=== PATIENT | male | born 1955 | race Caucasian/White ===

== ENCOUNTER 2018-01-15 05:35 | Day surgery (SDC) | payer OTHER ==
[~2018-01-15] VITALS: Ht 170.2 cm; Wt 77.1 kg
[2018-01-15] MEDS ORDERED: CEFAZOLIN 1 GM IVPB PREMIX 50 ML IV ONE (06:05)
[2018-01-15] MEDS ORDERED: CEFAZOLIN SOD 1 GM/ ISO 50 ML PREMIX IV ONE (07:00)
[2018-01-15] MEDS ORDERED: LR 1,000 ML IV.SOLN IV ONE (07:35)
[2018-01-15] MEDS ORDERED: MIDAZOLAM HCL 5 MG/5 ML VIAL IVP ONE (07:35)
[2018-01-15] MEDS ORDERED: NS 1000 ML IV.SOLN IV ONE (07:35)
[2018-01-15] MEDS ORDERED: ONDANSETRON HCL 4 MG/2 ML VIAL IVP ONE (07:35)
[2018-01-15] MEDS ORDERED: BUPIVACAINE /PF 0.25% 30 ML VIAL INJ ONE ×2 (07:35→08:12)
[2018-01-15] MEDS ORDERED: fentaNYL CITRATE/PF 100 MCG/2 ML AMP IVP ONE (07:35)
[2018-01-15] MEDS ORDERED: PROPOFOL 200MG/ 20ML VIAL (DIPRIVAN) IV ONE (07:35)
[2018-01-15] MEDS ORDERED: LR 1,000 ML IV SCH (08:06)
[2018-01-15] MEDS ORDERED: METOCLOPRAMIDE HCL 10 MG/2 ML VIAL IVP PRN (08:15)
[2018-01-15] MEDS ORDERED: MEPERIDINE HCL/PF 50 MG/ML AMP IVP PRN ×2 (08:15)
[2018-01-15] MEDS ORDERED: MEPERIDINE HCL/PF 25 MG/ML DISP.SYRIN IVP PRN (08:15)
[2018-01-15] MEDS ORDERED: D5/0.45 NS 1,000 ML IV SCH (08:28)
[2018-01-15] MEDS ORDERED: HYDROmorphone 1 MG INJ. 1 MG/ML AMPUL IVP PRN (08:30)
[2018-01-15] MEDS ORDERED: HYDROcodone/ACETAMIN 5-325 MG TAB (NORCO/ VICODIN) PO PRN ×2 (08:30)
[2018-01-15 10:38] VITALS: BP_SYST 115
== END 2018-01-15 09:50 | disposition home or self-care (01) ==
LOC: SDS 05:35 → SMU 05:35 → EDSEX 07:30 → SDS 09:50
PROVIDERS: ATTEND Colon & Rectal Surgery
DX: L72.0 Epidermal cyst (principal); J06.9 Acute upper respiratory infection, unspecified; M15.8 Other polyosteoarthritis; E55.9 Vitamin D deficiency, unspecified; Z79.899 Other long term (current) drug therapy
CPT/HCPCS: 11406; 88304; J0690; J2250; J2405; J2704; J3010; J3490; J7030; J7120